=== PATIENT | male | born 1970 | race Caucasian/White ===

== ENCOUNTER 2023-05-21 12:19 | Day surgery (SDC) | payer BC ==
[2023-05-19 13:39] VITALS: BMI 32.8
[2023-05-21] MEDS ORDERED: LACTATED RINGERS 1,000 ML IV SCH (13:05)
[2023-05-21] MEDS ORDERED: LIDOCAINE 1% (10MG/ML) FOR IV START INTRADERMA PRN (13:05)
[2023-05-21 13:14] VITALS: TEMP 97.5
[2023-05-21] MEDS ORDERED: PROPOFOL 10 MG/ML 20 ML VIAL IV ONE (14:35)
[2023-05-21] MEDS ORDERED: IV FLUID CONTINUATION 700 ML IV ONE (14:59)
[2023-05-21 15:02] VITALS: RESP 18
--- NOTE | 2023-05-21 15:16 | P.PCN ---
Date of Procedure: 05/21/23 Procedure(s) Performed: BRIEF HISTORY: Patient is a 52-year-old pleasant white male scheduled for an elective colonoscopy as a part of screening for colon cancer. PROCEDURE PERFORMED: Colonoscopy with biopsy. PREOPERATIVE DIAGNOSIS: Screening for colon cancer. IV sedation per Anesthesia. PROCEDURE: After informed consent was obtained, the patient, was brought into the endoscopy unit. IV sedation was administered by Anesthesia under continuous monitoring. Digital rectal examination was normal. Initially the Olympus CF-160 flexible video colonoscope was then inserted in the rectum, gradually advanced into the cecum without any difficulty. Careful examination was performed as the scope was gradually being withdrawn. Ileocecal valve and the appendiceal orifice were visualized and appeared normal. Prep was excellent. Mucosa of the cecum, appeared normal. Ascending colon there was a 5 limited polyp removed by cold biopsy. In the hepatic flexure there was a 4 mm sessile polyp removed by cold biopsy. Rest of the ascending colon, transverse colon, descending colon, sigmoid colon, and rectum appeared normal. In the rectum there was another 5 mm sessile polyp removed by cold biopsy. Retroflexion was performed in the rectum and no lesions were seen. The patient tolerated the procedure well. IMPRESSION: 5 mm ascending colon polyp status post cold biopsy 4 mm hepatic flexure polyp status post cold biopsy 5 mm rectal polyp status post cold biopsy RECOMMENDATIONS: Findings of this examination were discussed with the patient as well as his family. He was advised to follow with the biopsy results. If the biopsies adenoma he can have a repeat colonoscopy in 5 years
[2023-05-21 15:18] VITALS: BP 134/78; PULSE 73
== END 2023-05-21 15:35 | disposition home or self-care (01) ==
LOC: ORWHC2ENDO 12:19
PROVIDERS: ATTEND Internal Medicine Gastroenterology
DX: Z12.11 Encounter for screening for malignant neoplasm of colon (principal); Z79.899 Other long term (current) drug therapy
CPT/HCPCS: 45380; J2704; 88305